=== PATIENT | female | born 1990 | race Caucasian/White ===

== ENCOUNTER 2018-07-05 21:37 | Observation (INO) | payer BC ==
[2018-07-06] MEDS: SOD CHLORIDE 0.9% 1,000 ML IV ×3 (00:17→15:23)
[2018-07-06] MEDS: ONDANSETRON 4 MG INJ IV ×3 (00:17→22:34)
[2018-07-06] MEDS: morphine 4 MG/ML VIAL IV (00:17)
[2018-07-06 00:22] LABS: ADD MAN DIFF? NO
[2018-07-06 00:24] LABS: BASOPHILS % 0.3 % (0.0-2.0); EOSINOPHILS # 0.3 10^3/ul (0.0-0.5); EOSINOPHILS % 2.3 % (0.0-7.0); HEMATOCRIT 43.1 % (37.0-47.0); HEMOGLOBIN 14.1 g/dl (12.0-16.0); LYMPHOCYTES # 2.5 10^3/ul (0.8-2.9); LYMPHOCYTES % 17.6 % (15.0-51.0); MEAN CORPUSCULAR HEMOGLOBIN 27.5 pg (29.0-33.0); MEAN CORPUSCULAR HGB CONC 32.7 g/dl (32.0-37.0); MEAN CORPUSCULAR VOLUME 84.2 fl (82.0-101.0); MEAN PLATELET VOLUME 10.8 fl (7.4-10.4); MONOCYTE # 0.5 10^3/ul (0.3-0.9); MONOCYTES % 3.7 % (0.0-11.0); NEUTROPHIL # 10.9 10^3/ul (1.6-7.5); NEUTROPHILS % 75.6 % (39.0-77.0); PLATELET COUNT 292 10^3/UL (140-415); RED BLOOD COUNT 5.12 10^6/ul (4.20-5.40); RED CELL DISTRIBUTION WIDTH 12.5 % (11.5-14.5)
[2018-07-06 00:24] LABS: WHITE BLOOD COUNT 14.4 10^3/ul (4.8-10.8)
[2018-07-06 00:50] LABS: ADD UMIC YES; UR ASCORBIC ACID 40 mg/dL (NEGATIVE); UR BACTERIA FEW /HPF (NONE SEEN); UR BILIRUBIN (Dip) NEGATIVE (NEGATIVE); UR BLOOD (Dip) NEGATIVE (NEGATIVE); UR CLARITY CLOUDY (CLEAR); UR COLOR YELLOW (YELLOW); UR GLUCOSE (Dip) NEGATIVE (NEGATIVE); UR KETONES (Dip) 1+ mg/dL (NEGATIVE); UR LEUKOCYTE ESTERASE (Dip) 2+ Leu/ul (NEGATIVE); UR MUCUS MANY /HPF (NONE SEEN); UR NITRITE (Dip) NEGATIVE (NEGATIVE); UR RBC 13 /HPF (0-5); UR SPECIFIC GRAVITY (Dip) 1.023 (1.003-1.030); UR SQUAMOUS EPITHELIAL CELL FEW /HPF (FEW); UR TOTAL PROTEIN (Dip) NEGATIVE (NEGATIVE); UR UROBILINOGEN (Dip) NEGATIVE (NEGATIVE); UR WBC 36 /HPF (0-5)
[2018-07-06 00:52] LABS: ALANINE AMINOTRANSFERASE 92 IU/L (13-69); ALBUMIN/GLOBULIN RATIO 1.05; ALKALINE PHOSPHATASE 82 IU/L (42-121); ANION GAP 13 (8-16); ASPARTATE AMINO TRANSFERASE 57 IU/L (15-46); BILIRUBIN,INDIRECT 0.5 mg/dl (0-1.1); BILIRUBIN,TOTAL 0.5 mg/dl (0.2-1.3); BLOOD UREA NITROGEN 7 mg/dl (7-20); CALCIUM 9.7 mg/dl (8.4-10.2); CARBON DIOXIDE 25 mmol/L (21-31); CHLORIDE 103 mmol/L (97-110); CREATININE 0.59 mg/dl (0.44-1.00); GLUCOSE 125 mg/dl (70-220); LIPASE 40 U/L (23-300); POTASSIUM 3.7 mmol/L (3.5-5.1); SODIUM 137 mmol/L (135-144); TOTAL PROTEIN 7.8 g/dl (6.1-8.1)
[2018-07-06] MEDS ORDERED: ACETAMINOPHEN 325 MG TAB PO ×2 (03:00→17:00)
[2018-07-06] MEDS ORDERED: DOCUSATE SODIUM 100 MG CAP PO (03:00)
[2018-07-06] MEDS ORDERED: BISACODYL (EC) 5 MG TAB PO (03:00)
[2018-07-06] MEDS ORDERED: NACL 0.9% 3 ML SYG IV (03:00)
[2018-07-06] MEDS: HYDROmorphONE 0.5 MG/0.5 ML SYG IV ×2 (03:11→07:15)
[2018-07-06 04:01] LABS: MAGNESIUM 2.3 mg/dl (1.7-2.5)
[2018-07-06 04:01] LABS: CHOL/HDL RATIO 5.7 RATIO; CHOLESTEROL 218 mg/dl (100-200); HDL CHOLESTEROL 38 mg/dl (34-82); LDL CHOLESTEROL,CALCULATED 156 mg/dl; TRIGLYCERIDES 118 mg/dl (0-149)
[2018-07-06 04:45] LABS: HEMOGLOBIN A1C 5.3 % (0-5.9)
[2018-07-06] MEDS: PIPER-TAZO 3.375 GM IV (PMX) 100 ML IVPB ×4 (05:41→23:38)
[2018-07-06] MEDS: IOHEXOL 300MG/ML 150 ML BTL (09:27)
[2018-07-06] MEDS: SOD CHLORIDE 0.9% 100 ML (09:27)
[2018-07-06] MEDS ORDERED: PROPOFOL 20 ML (16:48)
[2018-07-06] MEDS ORDERED: SUCCINYLCHOLINE CHLORIDE 100 MG/5 ML SYG IV (16:48)
[2018-07-06] MEDS ORDERED: GLYCOPYRROLATE 0.4 MG INJ (16:48)
[2018-07-06] MEDS ORDERED: ROCURONIUM 50 MG INJ (16:48)
[2018-07-06] MEDS ORDERED: LIDOCAINE 2% (SDV) 5 ML INJ (16:48)
[2018-07-06] MEDS ORDERED: NEOSTIGMINE 3 MG/3 ML SYRINGE (16:48)
[2018-07-06] MEDS ORDERED: MEPERIDINE /PF (100 MG/2 ML) AMPULE (16:49)
[2018-07-06] MEDS ORDERED: CEFAZOLIN 1 GM INJ (16:49)
[2018-07-06] MEDS ORDERED: METOCLOPRAMIDE 10 MG INJ (16:49)
[2018-07-06] MEDS ORDERED: ONDANSETRON 4 MG INJ (16:49)
[2018-07-06] MEDS: LIDOCAINE 0.5% (MDV) 50 ML INJ (17:06)
[2018-07-06] MEDS: BUPIVACAINE 0.25%/EPI (SDV) 30 ML INJ (17:06)
[2018-07-06] MEDS ORDERED: hydrALAzine 20 MG INJ IV (17:30)
[2018-07-06] MEDS ORDERED: METOCLOPRAMIDE 10 MG INJ IV (17:30)
[2018-07-06] MEDS ORDERED: MIDAZOLAM 1 MG/ML 2 ML INJ IV (17:30)
[2018-07-06] MEDS ORDERED: DIPHENHYDRAMINE 50 MG INJ IV (17:30)
[2018-07-06] MEDS ORDERED: OXYCODONE/ACETAMINOPHEN (5/325) TAB PO (17:30)
[2018-07-06] MEDS ORDERED: ONDANSETRON 4 MG INJ IV (17:30)
[2018-07-06] MEDS ORDERED: EPHEDrine SULFATE 50 MG/5 ML SYG IV (17:30)
[2018-07-06] MEDS ORDERED: FENTAnyl 50 MCG/ML VIAL IV ×3 (17:30)
[2018-07-06] MEDS ORDERED: HYDROmorphONE 1 MG/5 ML IV SYRINGE IV (17:30)
[2018-07-06] MEDS ORDERED: LABETALOL HCL 20MG INJ IV (17:30)
[2018-07-06] MEDS: HYDROmorphONE 1 MG/5 ML IV SYRINGE IV ×2 (18:17→18:26)
[2018-07-06] MEDS: KETOROLAC 15 MG INJ IV ×2 (18:22→23:38)
[2018-07-06] MEDS: MEPERIDINE 25 MG INJ IV (18:51)
[2018-07-06] MEDS: OXYCODONE/ACETAMINOPHEN (5/325) TAB PO (18:52)
[2018-07-06] MEDS: D5-NS + KCL 20 MEQ 1,000 ML IV (20:53)
[2018-07-06] MEDS: DOCUSATE SODIUM 100 MG CAP PO (20:53)
[2018-07-07] MEDS: D5-NS + KCL 20 MEQ 1,000 ML IV ×3 (02:44→17:31)
[2018-07-07] MEDS: SOD CHLORIDE 0.9% 1,000 ML IV ×2 (03:25→16:23)
[2018-07-07] MEDS: KETOROLAC 15 MG INJ IV ×4 (05:15→23:10)
[2018-07-07] MEDS: PIPER-TAZO 3.375 GM IV (PMX) 100 ML IVPB ×4 (05:18→23:10)
[2018-07-07 05:27] LABS: ADD MAN DIFF? NO
[2018-07-07 05:35] LABS: WHITE BLOOD COUNT 8.4 10^3/ul (4.8-10.8)
[2018-07-07 05:35] LABS: BASOPHILS % 0.4 % (0.0-2.0); EOSINOPHILS # 0.1 10^3/ul (0.0-0.5); EOSINOPHILS % 1.1 % (0.0-7.0); HEMATOCRIT 33.9 % (37.0-47.0); HEMOGLOBIN 10.8 g/dl (12.0-16.0); LYMPHOCYTES # 2.3 10^3/ul (0.8-2.9); LYMPHOCYTES % 27.4 % (15.0-51.0); MEAN CORPUSCULAR HEMOGLOBIN 27.8 pg (29.0-33.0); MEAN CORPUSCULAR HGB CONC 31.9 g/dl (32.0-37.0); MEAN CORPUSCULAR VOLUME 87.4 fl (82.0-101.0); MEAN PLATELET VOLUME 11.1 fl (7.4-10.4); MONOCYTE # 0.6 10^3/ul (0.3-0.9); MONOCYTES % 7.6 % (0.0-11.0); NEUTROPHIL # 5.4 10^3/ul (1.6-7.5); NEUTROPHILS % 63.3 % (39.0-77.0); PLATELET COUNT 212 10^3/UL (140-415); RED BLOOD COUNT 3.88 10^6/ul (4.20-5.40); RED CELL DISTRIBUTION WIDTH 13.1 % (11.5-14.5)
[2018-07-07] MEDS: ENOXAPARIN 40 MG/0.4 ML SYG SC (06:32)
[2018-07-07 06:52] LABS: ALBUMIN 3.1 g/dl (3.3-4.9); ALBUMIN/GLOBULIN RATIO 1.14; ALKALINE PHOSPHATASE 47 IU/L (42-121); ANION GAP 7 (8-16); ASPARTATE AMINO TRANSFERASE 57 IU/L (15-46); BILIRUBIN,INDIRECT 0.3 mg/dl (0-1.1); BILIRUBIN,TOTAL 0.3 mg/dl (0.2-1.3); BLOOD UREA NITROGEN 7 mg/dl (7-20); CALCIUM 7.6 mg/dl (8.4-10.2); CARBON DIOXIDE 24 mmol/L (21-31); CHLORIDE 113 mmol/L (97-110); CREATININE 0.53 mg/dl (0.44-1.00); GLUCOSE 98 mg/dl (70-220); SODIUM 140 mmol/L (135-144); TOTAL PROTEIN 5.8 g/dl (6.1-8.1)
[2018-07-07] MEDS: HYDROmorphONE 0.5 MG/0.5 ML SYG IV (07:29)
[2018-07-07] MEDS: ONDANSETRON 4 MG INJ IV ×2 (07:29→14:07)
[2018-07-07 07:50] LABS: ALANINE AMINOTRANSFERASE 78 IU/L (13-69)
[2018-07-07] MEDS: DOCUSATE SODIUM 100 MG CAP PO ×2 (09:11→20:41)
[2018-07-07] MEDS: HYDROCODONE/APAP (10/325) TAB PO ×2 (09:11→15:20)
[2018-07-07] MEDS: HYDROCODONE/APAP (5/325) TAB PO ×2 (14:17→21:17)
[2018-07-07] MEDS: POLYETHYLENE GLYCOL 17 GM PACKET PO (20:41)
[2018-07-08] MEDS: SOD CHLORIDE 0.9% 1,000 ML IV (04:53)
[2018-07-08] MEDS: PIPER-TAZO 3.375 GM IV (PMX) 100 ML IVPB ×2 (05:01→11:13)
[2018-07-08] MEDS: KETOROLAC 15 MG INJ IV ×2 (05:01→11:15)
[2018-07-08] MEDS: ENOXAPARIN 40 MG/0.4 ML SYG SC (06:12)
[2018-07-08] MEDS: DOCUSATE SODIUM 100 MG CAP PO (09:34)
[2018-07-08] MEDS: HYDROCODONE/APAP (5/325) TAB PO (09:34)
[2018-07-08] MEDS: POLYETHYLENE GLYCOL 17 GM PACKET PO (09:35)
[2018-07-08] MEDS: D5-NS + KCL 20 MEQ 1,000 ML IV (09:43)
== END 2018-07-08 14:22 | disposition home or self-care (01) ==
LOC: E/R 21:37 → MS1 07-06 02:34
DX: K80.10 Calculus of gallbladder with chronic cholecystitis without obstruction (principal); E66.9 Obesity, unspecified; E78.5 Hyperlipidemia, unspecified; K52.9 Noninfective gastroenteritis and colitis, unspecified; R74.0 Nonspecific elevation of levels of transaminase and lactic acid dehydrogenase [LDH]; Z68.37 Body mass index [BMI] 37.0-37.9, adult
CPT/HCPCS: 47562; 74177; 76705; 80053; 80061; 81001; 83036; 83690; 83735; 84443; 84703; 85025; 87086; 88304; 96374; 96375; 99285-25